=== PATIENT | male | born 1965 | race Caucasian/White ===

== ENCOUNTER 2018-08-06 10:04 | Outpatient (CLI) | payer OTHER | END 2018-08-06 10:14 | disposition home or self-care (01) | LOC: SONOGRAMA 10:04 | DX: R10.30 Lower abdominal pain, unspecified (principal) ==

== ENCOUNTER 2019-03-29 15:46 | Emergency (ER) | payer OTHER ==
[~2019-03-29] VITALS: Ht 177.8 cm; Wt 70.3 kg
[2019-03-29] MEDS ORDERED: [UNRECOGNIZED DRUG - OTHER] (16:25)
[2019-03-29] MEDS ORDERED: BACTRIM DS TAB1 EACH PO (20:13)
== END 2019-03-29 20:16 | disposition home or self-care (01) ==
LOC: ER 15:46
DX: N39.0 Urinary tract infection, site not specified (principal)

== ENCOUNTER 2019-04-16 13:16 | Emergency (ER) | payer OTHER ==
[~2019-04-16] VITALS: Ht 177.8 cm; Wt 70.3 kg
[~2019-04-16 13:16] MED LIST: BACTRIM DS TAB1 EACH PO; [UNRECOGNIZED DRUG - OTHER]
== END 2019-04-16 19:07 | disposition home or self-care (01) ==
LOC: ER 13:16
DX: N50.812 Left testicular pain (principal); N50.811 Right testicular pain